=== PATIENT | female | born 1950 | race Caucasian/White ===

== ENCOUNTER → 2021-07-16 | Day surgery (SDC) | payer OTHER ==
[~2021-07-16] VITALS: Ht 142.2 cm; Wt 83.9 kg
[~2021-07-16] MED LIST: ASPIRIN EC81 MG PO; CLARITIN10 M2 PO; COZAAR50 MG PO; CYCLOBENZAPRINE10 MG PO; FENOFIBRATE54 MG PO; GABAPENTIN800 MG PO; LEVOTHYROXINE100 MC2 PO; MAGNESIUM500 MG PO; PRAVACHOL20 MG PO; PRILOSEC20 MG PO; TRAMADOL HCL100 MG PO; VITAMIN B125000 MCG PO; VITAMIN D350 MC3 PO; ZOLOFT100 MG PO
[2021-07-16 12:29] LABS: HCT 35.8 % (37.0-47.0); MCH 29.7 pg (25.0-31.0); MCHC 33.5 g/dL (32.0-36.0); MCV 88.6 fL (78.0-100.0); MPV 11.1 fL (6.0-9.5); RBC 4.04 M/uL (4.20-5.40); RDW 16.1 % (11.5-14.0); WBC 5.5 K/uL (4.0-10.5)
== END | disposition home or self-care (01) ==
LOC: FAS 11:27
PROVIDERS: Legal Medicine
DX: S52.571A Other intraarticular fracture of lower end of right radius, initial encounter for closed fracture (principal); G89.18 Other acute postprocedural pain; I10 Essential (primary) hypertension; J44.9 Chronic obstructive pulmonary disease, unspecified; E78.5 Hyperlipidemia, unspecified; E03.9 Hypothyroidism, unspecified; K21.9 Gastro-esophageal reflux disease without esophagitis; F41.9 Anxiety disorder, unspecified; F32.A Depression, unspecified; F17.210 Nicotine dependence, cigarettes, uncomplicated; Z88.0 Allergy status to penicillin; Z88.1 Allergy status to other antibiotic agents; Z79.82 Long term (current) use of aspirin; Z79.899 Other long term (current) drug therapy; W19.XXXA Unspecified fall, initial encounter
CPT/HCPCS: 36415; 73100; 76000; C1713; J1100; J1885; J2250; J2405; J2704; J2795; J7120